=== PATIENT | female | born 1975 | race Caucasian/White ===

== ENCOUNTER 2023-12-09 09:13 | Emergency (ER) | payer MEDICAID, OTHER ==
[~2023-12-09] VITALS: Ht 160 cm; Wt 81.8 kg
[~2023-12-09 09:13] MED LIST: RISP1TAB48 PO
[2023-12-09 09:16] VITALS: TEMP 98.7
[2023-12-09 09:47] LABS: APPEARANCE,URINE TURBID (CLEAR); BILIRUBIN,URINE NEGATIVE (NEGATIVE); COLOR,URINE YELLOW (YELLOW); GLUCOSE, URINE (UA) NEGATIVE (NEGATIVE); KETONES,URINE NEGATIVE (NEGATIVE); LEUKOCYTE ESTERASE ,URINE LARGE (NEGATIVE); NITRATE,URINE NEGATIVE (NEGATIVE); OCCULT BLOOD,URINE SMALL (NEGATIVE); PROTEIN,URINE 30-70 mg/dL (NEGATIVE); SPECIFIC GRAVITIY, URINE 1.024 (1.003-1.030); UROBILINOGEN,URINE <=1.0 mg/dL (<=1.0)
[2023-12-09 09:57] LABS: BACTERIA,URINE Many /HPF (None Seen); SQUAMOUS EPITHELIAL CELL,UR Many /LPF (None Seen); WBC,URINE >100 /HPF (0-5)
[2023-12-09 10:26] LABS: PREGNANCY RESULT, SERUM NEGATIVE (NEGATIVE)
[2023-12-09] MEDS: ACETAMINOPHEN 500 MG TABLET PO ONE (10:43)
[2023-12-09] MEDS: DOXYCYCLINE HYCLATE 100 MG TABLET PO ONE (10:43)
[2023-12-09] MEDS: CefTRIAXone SODIUM 500 MG in DEXTROSE 5%-WATER 50 ML IV ONE (10:44)
[2023-12-09] MEDS ORDERED: DOXY-354 PO (10:47)
[2023-12-09] MEDS ORDERED: CEPH-558 PO (10:47)
[2023-12-09] MEDS ORDERED: METR500 PO (11:36)
[2023-12-09] MEDS: MetroNIDAZOLE 250 MG TABLET PO ONE (11:46)
[2023-12-09 12:45] VITALS: BP 116/71; PULSE 79; RESP 15; O2SAT 99
[2023-12-09 16:34] LABS: RAPID PLASMA REAGIN NONREACTIVE (NONREACTIVE)
[2023-12-10 03:06] LABS: HIV 1-2 SCREEN 4TH GEN W/RFLX Non Reactive (Non Reactive)
== END 2023-12-09 12:57 | disposition home or self-care (01) ==
LOC: EMS 09:13
DX: A64 Unspecified sexually transmitted disease (principal); N39.0 Urinary tract infection, site not specified; R30.0 Dysuria; F12.90 Cannabis use, unspecified, uncomplicated; F15.10 Other stimulant abuse, uncomplicated
CPT/HCPCS: 99284; 96365; 86592; 81001; 87210; 36415; 87086; 87186; 87491; 87591; 87389; 84703; J0696; J7060

== ENCOUNTER 2025-03-12 13:52 | Emergency (ER) | payer MEDICAID, OTHER ==
[~2025-03-12] VITALS: Ht 160 cm; Wt 86.0 kg
[~2025-03-12 13:52] MED LIST changes: +CEPH-558 PO; +DOXY-354 PO; +METR500 PO; -RISP1TAB48 PO
[2025-03-12 14:26] VITALS: BP 118/69; PULSE 89; RESP 18; TEMP 97.7; O2SAT 95
== END 2025-03-12 17:34 | disposition left against medical advice (07) ==
LOC: EMS 13:52
DX: M54.2 Cervicalgia (principal); Z53.21 Procedure and treatment not carried out due to patient leaving prior to being seen by health care provider
CPT/HCPCS: 99281; Z7502